=== PATIENT | male | born 1990 | race Caucasian/White ===

== ENCOUNTER 2022-06-02 23:55 | Emergency (ER) | payer OTHER, SELFPAY ==
[2022-06-03 00:46] LABS: #Eosinphils 0.1 10x3/uL (0.0-0.5); #Monocytes 0.4 10x3/uL (0.0-1.1); #Neutrophils 9.2 10x3/uL (1.5-8.4); %Basophils 0.4 % (0.0-2.0); %Eosinophils 0.6 % (0.0-6.0); %Lymphocytes 14.6 % (18.0-47.0); %Monocytes 3.2 % (0.0-10.0); %Neutrophils 80.9 % (40.0-75.0); Hemoglobin 15.4 g/dL (13.5-17.5); Mean Corpuscular HGB CONC 35.6 g/dL (32.0-36.0); Mean Corpuscular Hemoglobin 29.1 pg (27.0-33.0); Mean Corpuscular Volume 81.9 fl (81.2-95.1); Mean Platelet Volume 10.3 fl (7.4-10.4); Platelet Count 172 10x3/uL (150-450); RBC Distribution Width 12.2 % (11.5-14.5); Red Blood Cell (RBC) Count 5.29 10x6/uL (4.32-5.72); White Blood Cell (WBC) Count 11.3 10x3/uL (3.5-10.5)
[2022-06-03 00:57] LABS: ALT (SGPT) 28 U/L (8-55); AST (SGOT) 25 U/L (5-34); Acetaminophen Less than 10.0 mcg/mL (10.0-30.0); Albumin 4.9 g/dL (3.5-5.0); Alcohol 194 mg/dL (Less than 10); Alkaline Phosphatase 50 U/L (40-110); Anion Gap 17 mmol/L (10-20); BUN (Urea Nitrogen) 14 mg/dL (8.9-20.6); Calc. Creatinine Clearance 0 mL/min (70-130); Calcium 8.8 mg/dL (7.8-10.44); Carbon Dioxide 23 mmol/L (22-29); Chloride 108 mmol/L (98-107); Estimated GFR 92; Globulin 2.7 g/dL (2.4-3.5); Glucose 116 mg/dL (70-105); Potassium 3.8 mmol/L (3.5-5.1); Protein, Total 7.6 g/dL (6.0-8.3); Salicylate Less than 8.0 mg/dL (15.0-30.0); Sodium 144 mmol/L (136-145)
== END 2022-06-03 11:40 | disposition home or self-care (01) ==
LOC: CSHERS 23:55
DX: F43.20 Adjustment disorder, unspecified (principal); F17.220 Nicotine dependence, chewing tobacco, uncomplicated
CPT/HCPCS: 36415; 80053; 80307; 85025; 99285